=== PATIENT | male | born 2000 | race Caucasian/White ===

== ENCOUNTER 2023-10-13 09:00 | Emergency (ER) | payer OTHER, SELFPAY ==
[2023-10-13 09:00] VITALS: BP 142/84; PULSE 68; RESP 18; TEMP 36.6; O2SAT 98; BMI 26.5
[2023-10-13 09:07] VITALS: BP 142/84; PULSE 68; RESP 16; O2SAT 97
--- NOTE | 2023-10-13 09:15 | DI.RAD.S_ITS ---
PROCEDURE: XR CHEST 1V INDICATIONS: chest pain TECHNIQUE: One view of the chest was acquired. COMPARISON: None. FINDINGS: Surgical changes and devices: None. Lungs and pleura: Lungs are clear. No pleural effusions or pneumothorax. Mediastinum: Mediastinal contours appear normal. Heart size is normal. Bones and chest wall: No suspicious bony lesions. Overlying soft tissues appear unremarkable. IMPRESSION: No evidence acute pulmonary process. Dictated by: Miguelangel Muñoz M.D. on 10/13/2023 at 10:19 Approved by: Miguelangel Muñoz M.D. on 10/13/2023 at 10:19
--- NOTE | 2023-10-13 09:23 | ED_ITS ---
HPI - Chest Pain General Chief Complaint: Chest Pain Stated Complaint: Chest pain Time Seen by Provider: 10/13/23 09:10 Source: patient Mode of arrival: Family Vehicle Limitations: no limitations History of Present Illness HPI narrative: Patient is a 22-year-old healthy male who presents today with right-sided chest pain. He is units moved here on September 21 they [address] their car he has been doing well he has been exercising. However yesterday while cooking he noted some right pectoral pain. He says it is worse with deep breathing. Denies any sort of injury denies shortness of breath or palpitations. Related Data Allergies Allergy/AdvReac Type Severity Reaction Status Date / Time No Known Drug Allergies Allergy Verified 10/13/23 09:51 Patient History Social History Smoking Status: Former smoker Smoking Status: Former smoker tobacco type: vaping alcohol intake frequency: a few times a month Substance Use Type: does not use Exam Initial Vital Signs Initial Vital Signs: Vital Signs Temperature 97.9 F 10/13/23 09:00 Pulse Rate 68 10/13/23 09:00 Respiratory Rate 18 10/13/23 09:00 Blood Pressure 142/84 H 10/13/23 09:00 Pulse Oximetry 98 10/13/23 09:00 Oxygen Delivery Method Room Air 10/13/23 09:00 GENERAL: Alert very well-appearing and in [no acute] distress. HEENT: Head atraumatic,EOMI, pupils reactive, face symmetric, [moist] mucous membranes CARDIOVASCULAR: Regular rate and rhythm without murmurs, rubs or gallops. Nonreproducible chest pain RESPIRATORY: Breath sounds equal bilaterally, no wheezes rales or rhonchi. ABDOMEN: Soft, nontender. Normoactive bowel sounds all 4 quadrants. No guarding or rebound. EXTREMITIES: Normal range of motion, no clubbing or edema. Neurovascularly intact NEUROLOGICAL: Alert and oriented x4.Normal gait and speech. SKIN: Warm, dry, no laceration, no petechiae, no rashes or lesions. Scores HEART Score Heart Score history: Slightly Suspicious Heart Score EKG: Normal Heart Score Age: < 45 years old Heart Score risk factors: No known risk factors Heart Score troponin: < or = to normal limit Heart Score Total: 0 PERC Score Age greater than or equal to 50 years: No Heart rate greater than or equal to 100 bpm: No Room Air O2 Sat less than 95%: No Unilateral leg swelling: No Recent trauma or surgery: No Hemoptysis: No Prior PE or DVT: No Hormone Use: No Total PERC Score: 0 Course Orders Ordered: ED Orders 10/13/23 09:15 XR chest 1V Stat EKG-12 Lead Stat 10/13/23 09:26 Complete Blood Count AUTO DIFF Stat Comprehensive Metabolic Panel Stat D Dimer Stat Lipase Stat Magnesium Stat PTT Partial Thromboplastin Luis Daniel Stat Prothrombin Time INR Stat Troponin & CK Cardiac Panel Stat Discontinued Medications Aspirin (Aspirin 81 Mg Chew Tab) 324 mg PO NOW ONE Stop: 10/13/23 09:16 Last Admin: 10/13/23 09:58 Dose: Not Given Documented By: BAIRON Ketorolac Tromethamine (Ketorolac 30 Mg/Ml Vial) 15 mg IV NOW ONE Stop: 10/13/23 09:29 Last Admin: 10/13/23 09:58 Dose: 15 mg Documented By: BAIRON Vital Signs Vital signs: Vital Signs - 8 hr 10/13/23 09:00 Temperature 97.9 F Pulse Rate 68 Respiratory Rate 18 Blood Pressure 142/84 H Pulse Oximetry 98 Oxygen Delivery Method Room Air MDM - Chest Pain Lab Data 10/13/23 09:26 10/13/23 09:26 Labs: Lab Results 10/13/23 Range/Units 09:26 WBC 5.0 (4.5-11.0) X10^3/uL RBC 5.04 (4.5-5.9) X10^6/uL Hgb 15.2 (13.5-17.5) g/dL Hct 43.9 (41-53) % MCV 87.1 (80-100) fL MCH 30.1 (26-34) PG MCHC 34.5 (30-36) % RDW 13.1 (11.6-14.8) % Plt Count 257 (150-400) X10^3/uL Neut % (Auto) 47.8 L (50-75) % Lymph % (Auto) 41.9 H (25-40) % [place] % (Auto) 7.2 (3-14) % Eos % (Auto) 2.7 (2-4) % Baso % (Auto) 0.4 (0-2) % Neut # (Auto) 2400 (6236-0367) /uL Lymph # (Auto) 2100 (1037-1262) /uL [place] # (Auto) 400 (0-900) /uL Eos # (Auto) 100 (0-450) /uL Baso # (Auto) 0 (0-100) /uL PT 12.4 (9.4-12.5) SECONDS INR 1.1 (0.9-1.3) APTT 35 (25.1-36.5) SECONDS D-Dimer < 215 (<500) ng/ml Sodium 138 (137-145) mmol/L Potassium 4.4 (3.4-5.1) mmol/L Chloride 104 (98-107) mmol/L Carbon Dioxide 29 (22-32) mmol/L BUN 17 (9-20) mg/dL Creatinine 0.88 (0.66-1.25) mg/dL Estimated GFR > 60 (>60) mL/min BUN/Creatinine Ratio 19.3 (6-22) Glucose 96 (70-100) mg/dL Calcium 10.0 (8.4-10.2) mg/dL Magnesium 2.0 (1.6-2.3) mg/dL Total Bilirubin 0.5 (0.2-1.3) mg/dL AST 36 (17-59) IU/L ALT 47 (<50) IU/L Alkaline Phosphatase 77 (38-126) U/L Total Creatine Kinase 173 H (55-170) U/L Troponin I < 0.012 (0.01-0.034) ng/mL Total Protein 8.1 (6.3-8.2) g/dL Albumin 4.8 (3.5-5.0) g/dL Globulin 3.3 (1.7-4.1) g/dL Albumin/Globulin Ratio 1.5 (1.0-2.8) Lipase 55 (23-300) U/L Imaging Data Chest x-ray: Radiologist's Impression: PROCEDURE: XR CHEST 1V INDICATIONS: chest pain TECHNIQUE: One view of the chest was acquired. COMPARISON: None. FINDINGS: Surgical changes and devices: None. Lungs and pleura: Lungs are clear. No pleural effusions or pneumothorax. Mediastinum: Mediastinal contours appear normal. Heart size is normal. Bones and chest wall: No suspicious bony lesions. Overlying soft tissues appear unremarkable. IMPRESSION: No evidence acute pulmonary process. Dictated by: Miguelangel Muñoz M.D. on 10/13/2023 at 10:19 ECG Data Interpretation: Normal sinus rhythm rate 66 CT interval 146 QRS 84 QTC 370 no acute ischemic changes MDM Narrative Medical decision making narrative: Patient healthy 22-year-old male presents today with right-sided chest pain it is worse with movement. Not really reproducible on palpation. Consistent with a musculoskeletal injury. Recently moved here significantly short of breath. Blood work has been reviewed overall reassuring D-dimer negative troponin negative no clinical significant abnormalities. Chest x-ray has been reviewed by myself no acute cardiopulmonary process EKG has been reviewed I suspect that this is more of a musculoskeletal injury. Highly unlikely to be pulmonary embolism or acute coronary syndrome. Recommend supportive care at this time. Discharge Plan Departure Patient Disposition: Home Clinical Impression: Costalchondritis Instructions: Costochondritis Activity Restrictions/Additional Instructions: *You have been diagnosed with costochondritis *What to do: At this time this is likely musculoskeletal problem. Recommend heat ice stretching. *Continue to take medications as directed Ibuprofen 600 mg every 6 hours for lehp-jf-mrkdjhmb pain Tylenol 1000 mg every 6 hours for otyf-yv-igjslghx pain *Follow up with your primary care provider in 2-3 days or call [phone] *Return to ER if you should have increasing pain shortness of breath or any new, worsening or concerning symptoms Stand Alone Forms: Patient Portal/API, Work Release Note
[2023-10-13 09:30] VITALS: BP 132/84; PULSE 72; RESP 16; O2SAT 96
[2023-10-13 09:40] LABS: Add Manual Diff / Slide Review NO; Basophils Absolute Auto 0 /uL (0-100); Basophils Percent Auto 0.4 % (0-2); Eosinophils Absolute Auto 100 /uL (0-450); Eosinophils Percent Auto 2.7 % (2-4); Hematocrit 43.9 % (41-53); Hemoglobin 15.2 g/dL (13.5-17.5); Lymphocytes Absolute Auto 2100 /uL (1100-4500); Lymphocytes Percent Auto 41.9 % (25-40); Mean Corpuscular HGB Conc 34.5 % (30-36); Mean Corpuscular Hemoglobin 30.1 PG (26-34); Mean Corpuscular Volume 87.1 fL (80-100); Monocytes Absolute Auto 400 /uL (0-900); Monocytes Percent Auto 7.2 % (3-14); Neutrophils Absolute Auto 2400 /uL (1500-7000); Neutrophils Percent Auto 47.8 % (50-75); Platelet Count 257 X10^3/uL (150-400); Red Blood Cell Count 5.04 X10^6/uL (4.5-5.9); Red Cell Distribution Width 13.1 % (11.6-14.8)
[2023-10-13 09:46] LABS: INR 1.1 (0.9-1.3); Prothrombin Time 12.4 SECONDS (9.4-12.5)
[2023-10-13 09:49] LABS: PTT Partial Thromboplastin Tim 35 SECONDS (25.1-36.5)
[2023-10-13 09:52] LABS: Alanine Aminotransferase 47 IU/L (<50); Albumin 4.8 g/dL (3.5-5.0); Albumin Globulin Ratio 1.5 (1.0-2.8); Alkaline Phosphatase 77 U/L (38-126); Aspartate Aminotransferase 36 IU/L (17-59); BUN Creatinine Ratio 19.3 (6-22); Bilirubin Total 0.5 mg/dL (0.2-1.3); Blood Urea Nitrogen 17 mg/dL (9-20); Carbon Dioxide 29 mmol/L (22-32); Chloride 104 mmol/L (98-107); Creatine Kinase 173 U/L (55-170); Estimated Glomerular Filt Rate > 60 mL/min (>60); Globulin 3.3 g/dL (1.7-4.1); Glucose 96 mg/dL (70-100); HEMOLYSIS < 15 (0-50); Lipase 55 U/L (23-300); Potassium 4.4 mmol/L (3.4-5.1); Sodium 138 mmol/L (137-145); Total Protein 8.1 g/dL (6.3-8.2)
[2023-10-13] MEDS: KETOROLAC 30 MG/ML VIAL 15 MG IV (09:58)
[2023-10-13 10:00] VITALS: BP 126/77; PULSE 68; RESP 17; O2SAT 96
[2023-10-13 10:02] LABS: D Dimer < 215 ng/ml (<500)
[2023-10-13 10:04] LABS: Troponin I < 0.012 ng/mL (0.01-0.034)
== END 2023-10-13 10:32 | disposition home or self-care (01) ==
PROVIDERS: Emergency Provider Emergency Medicine
DX: M94.0 Chondrocostal junction syndrome [Tietze] (principal)
CPT/HCPCS: 36415; 71045; 80053; 82550; 83690; 83735; 84484; 85025; 85379; 85610; 85730; 93005; 93010; 96374; 99284; J1885

== ENCOUNTER 2023-12-19 08:55 | Emergency (ER) | payer OTHER, SELFPAY ==
[2023-12-19 09:05] VITALS: BP 130/81; PULSE 77; RESP 18; TEMP 36.6; O2SAT 96; BMI 26.5
--- NOTE | 2023-12-19 10:34 | ED_ITS ---
HPI - Extremity Problem General Chief complaint: Extremity Problem,Nontraumatic Stated complaint: L Anderson Pain when running or taking stairs Time Seen by Provider: 12/19/23 10:15 Source: patient Mode of arrival: Ambulatory History of Present Illness HPI Narrative: 23-year-old healthy male with no reported medical issues. Patient presents with complaint of tibial pain when running, going up stairs. Patient states he has been working out more than typical. He is tiring for PRRT. Patient states isn't particularly painful to walk. Patient denies any other injuries. No falls no other trauma. He does note he has been working out a lot and running a lot more than typical. I states he is otherwise healthy. Sometimes has right knee pain but this is in his left lower extremity. Denies any other injuries. No daily medications. Denies any prior surgeries. No known drug allergies. Former smoker,, vaping tobacco. Occasional alcohol, no recreational drugs. Received health care through the [facility] in [place]. Related Data Allergies Allergy/AdvReac Type Severity Reaction Status Date / Time No Known Drug Allergies Allergy Verified 10/13/23 09:51 Review of Systems Review of Systems ROS Unobtainable: All systems reviewed & are unremarkable except as noted in HPI and below Patient History Social History Smoking Status: Former smoker Smoking Status: Former smoker tobacco type: vaping alcohol intake frequency: a few times a month Substance Use Type: does not use Exam Narrative Exam Narrative: GENERAL: Alert and oriented x three, male in no acute distress HEENT: Head normocephalic, atraumatic, EOMI, pupils reactive, face symmetric, moist mucous membranes NECK: Supple, full range of motion EXTREMITIES: Normal range of motion, no clubbing or edema. Neurovascularly intact, minimal tenderness over the proximal tibia approximately 4 cm below the knee. Patient does not have any other bony tenderness of the left extremity, no tenderness over the knee. No warmth erythema or other skin changes. Patient does not have any joint laxity on testing. 2+ pulses. Normal sensation throughout. NEUROLOGICAL: Cranial nerves II through XII grossly intact. Moving all extremities SKIN: Warm, dry, no petechiae, no rashes or lesions. Initial Vital Signs Initial Vital Signs: Vital Signs Temperature 97.8 F 12/19/23 09:05 Pulse Rate 77 12/19/23 09:05 Respiratory Rate 18 12/19/23 09:05 Blood Pressure 130/81 12/19/23 09:05 Pulse Oximetry 96 12/19/23 09:05 Oxygen Delivery Method Room Air 12/19/23 09:05 Course Orders Ordered: ED Orders 12/19/23 10:37 XR tibia fibula LT 2V Stat Vital Signs Vital signs: Vital Signs - 8 hr 12/19/23 09:05 Temperature 97.8 F Pulse Rate 77 Respiratory Rate 18 Blood Pressure 130/81 Pulse Oximetry 96 Oxygen Delivery Method Room Air MDM - Extremity (Nontraumatic) Imaging Data Extremity x-ray #1: Radiologist's Impression: Close Tibia/Fibula X-Ray (Signed) Nile West - 12/19/23 Launch?[address] [address] XRay Report Signed Patient: Flakito Alexander MR#: [id number] : 2000 Acct:[id number] Age/Sex: 23 / M Date of Service: 12/19/23 Loc: ED Accession Number: [id number] Procedure: XR tibia fibula LT 2V Ordering Provider: Robyn Huynh D.O. PROCEDURE: XR TIBIA FIBULA LT 2V INDICATIONS: prox tib pain w/ running TECHNIQUE: 2 views of the tibia and fibula were acquired. COMPARISON: None. FINDINGS: Bones: No fractures or dislocations. No suspicious bony lesions. Soft tissues: No suspicious soft tissue calcifications or masses. IMPRESSION: No acute lower leg fracture or dislocation. No radiographic evidence of anderson splint. Dictated by: Nile West M.D. on 12/19/2023 at 11:01 Approved by: Nile West M.D. on 12/19/2023 at 11:[address] [facility] Narrative Medical decision making narrative: 23-year-old male with complaint of left anterior anderson pain consistent with anderson splints and clinical history consistent with repetitive running and exercising. X-ray does not show any acute change. Patient was encouraged to decrease activity. Follow-up with primary care. Discharge Plan Departure Patient Disposition: Home Clinical Impression: Anderson splint of left lower extremity Instructions: DI for Anderson Splints-Adult Activity Restrictions/Additional Instructions: Follow up with primary care for recheck in the next week for recheck. I would recommend that you decrease your activity in terms of running, you can walk and ambulate normally. Can take Tylenol up to a 1000 mg every 6 hours and/or ibuprofen up to 600 mg every 6 hours as needed. Please return for rapidly worsening symptoms, inability to weightbear, new color changes or other new or concerning changes. Stand Alone Forms: Patient Portal/API
--- NOTE | 2023-12-19 10:37 | DI.RAD.S_ITS ---
PROCEDURE: XR TIBIA FIBULA LT 2V INDICATIONS: prox tib pain w/ running TECHNIQUE: 2 views of the tibia and fibula were acquired. COMPARISON: None. FINDINGS: Bones: No fractures or dislocations. No suspicious bony lesions. Soft tissues: No suspicious soft tissue calcifications or masses. IMPRESSION: No acute lower leg fracture or dislocation. No radiographic evidence of bolden splint. Dictated by: Nile West M.D. on 12/19/2023 at 11:01 Approved by: Nile West M.D. on 12/19/2023 at 11:01
== END 2023-12-19 11:19 | disposition home or self-care (01) ==
PROVIDERS: Emergency Provider Emergency Medicine
DX: S86.892A Other injury of other muscle(s) and tendon(s) at lower leg level, left leg, initial encounter (principal); X58.XXXA Exposure to other specified factors, initial encounter
CPT/HCPCS: 73590; 99283

== ENCOUNTER 2024-03-27 12:01 | Emergency (ER) | payer OTHER, SELFPAY ==
[2024-03-27] VITALS (9 sets, daily range): BP systolic 113–166; BP diastolic 54–84; PULSE 74–89; RESP 13–22; TEMP 36.1; O2SAT 95–97; BMI 27.2
--- NOTE | 2024-03-27 12:15 | DI.RAD.S_ITS ---
PROCEDURE: XR CHEST 1V INDICATIONS: chest pain TECHNIQUE: One view of the chest was acquired. COMPARISON: [facility], CR, XR CHEST 1V, 10/13/2023, 9:48. FINDINGS: New mild bilateral perihilar and lower lobe peribronchial thickening some of which commonly may be related to expiratory result with mild bibasilar subsegmental atelectasis however bronchitis, viral infection, asthma or other process could be considered. Cardiopericardial silhouette and pulmonary vasculature within normal limits. No pneumothorax, no pleural effusion, no focal consolidation. 6 mm round sclerotic density projected at the level of the left humeral head unchanged too small to characterize may represent heterotopic soft tissue calcification, bone cyst or other. Otherwise the osseous structures within normal limits for patient's age IMPRESSION: New mild bilateral perihilar and lower lobe peribronchial thickening as discussed above, bronchitis, viral infection, asthma or other process could be considered. If symptoms persist or worsen, CT chest could be performed. 6 mm round sclerotic density left humeral head unchanged. Dictated by: Jeramy Zavala M.D. on 03/27/2024 at 13:52 Approved by: Jeramy Zavala M.D. on 03/27/2024 at 13:55
--- NOTE | 2024-03-27 12:15 | EKG_ITS ---
[address] [address] Test Date: 2024-03-27 Pat Name: Flakito Alexander Department: [facility] Room: Gender: Male Social Services Technician: : 2000 Requested By: Order Number: [id number] Reading MD: Praful Mobley Measurements Intervals [place] Rate: 86 P: 56 FL: 154 QRS: 49 QRSD: 76 T: 37 QT: 324 QTc: 387 Interpretive Statements Normal sinus rhythm Electronically Signed On 03-28-2024 19:51:23 PDT by Praful Mobley
[2024-03-27 12:34] LABS: Add Manual Diff / Slide Review NO; Basophils Absolute Auto 100 /uL (0-100); Basophils Percent Auto 0.7 % (0-2); Eosinophils Absolute Auto 100 /uL (0-450); Eosinophils Percent Auto 0.9 % (2-4); Hematocrit 43.5 % (41-53); Lymphocytes Absolute Auto 1900 /uL (1100-4500); Lymphocytes Percent Auto 22.3 % (25-40); Mean Corpuscular HGB Conc 34.6 % (30-36); Mean Corpuscular Hemoglobin 30.3 PG (26-34); Mean Corpuscular Volume 87.7 fL (80-100); Monocytes Absolute Auto 400 /uL (0-900); Monocytes Percent Auto 4.5 % (3-14); Neutrophils Absolute Auto 6200 /uL (1500-7000); Neutrophils Percent Auto 71.6 % (50-75); Platelet Count 302 X10^3/uL (150-400); Red Blood Cell Count 4.96 X10^6/uL (4.5-5.9); White Blood Cell Count 8.7 X10^3/uL (4.5-11.0)
[2024-03-27 12:53] LABS: PTT Partial Thromboplastin Tim 29 SECONDS (25.1-36.5)
[2024-03-27 13:01] LABS: Alanine Aminotransferase 42 IU/L (<50); Albumin 4.6 g/dL (3.5-5.0); Albumin Globulin Ratio 1.6 (1.0-2.8); Alkaline Phosphatase 104 U/L (38-126); Aspartate Aminotransferase 36 IU/L (17-59); BUN Creatinine Ratio 12.9 (6-22); Bilirubin Total 0.5 mg/dL (0.2-1.3); Blood Urea Nitrogen 15 mg/dL (9-20); Calcium 9.7 mg/dL (8.4-10.2); Carbon Dioxide 26 mmol/L (22-32); Chloride 105 mmol/L (98-107); Creatine Kinase 273 U/L (55-170); Estimated Glomerular Filt Rate > 60 mL/min (>60); Globulin 2.9 g/dL (1.7-4.1); Glucose 89 mg/dL (70-100); HEMOLYSIS < 15 (0-50); Lipase 58 U/L (23-300); Magnesium 1.8 mg/dL (1.6-2.3); Potassium 4.3 mmol/L (3.4-5.1); Sodium 140 mmol/L (137-145); Total Protein 7.5 g/dL (6.3-8.2)
[2024-03-27 13:12] LABS: NT-proBNP (BNP-Adult 18+) < 20 pg/mL (<125); Troponin I < 0.012 ng/mL (0.01-0.034)
--- NOTE | 2024-03-27 14:36 | EKG_ITS ---
[address] [address] Test Date: 2024-03-27 Pat Name: Flakito Alexander Department: Room: Gender: Male Power Station Operator: LISSY : 2000 Requested By: Order Number: [id number] Reading MD: Praful Mobley Measurements Intervals [place] Rate: 77 P: 36 NM: 148 QRS: 66 QRSD: 86 T: 41 QT: 350 QTc: 396 Interpretive Statements Normal sinus rhythm with sinus arrhythmia Electronically Signed On 03-28-2024 19:51:37 PDT by Praful Mobley
--- NOTE | 2024-03-27 15:01 | ED_ITS ---
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 Chest pain restarted after about 5 minutes of running again and resolved after resting. Does not radiate. No history of cardiac issues. No diaphoresis. No cold cough or congestion recently the patient recalls. No nausea or vomiting no other GI or urinary symptoms. Patient denies any history of asthma. States he was seen by the base physician told it be evaluated. States no daily medications. No long distance travel. Former smoker, alcohol 2 or 3 times month, no recreational drugs. Had a grandmother who had open heart surgery but no known cardiac, pulmonary or embolic disease for parents or siblings. Patient states he did not go walk-in clinic about 2 weeks ago but he does not remember why. Related Data Previous Rx's Medication Instructions Recorded albuterol sulfate 90 mcg/actuation 2 puff inhalation Q4-6H PRN 03/27/24 aerosol inhaler shortness of breath or wheezing #6.7 grams azithromycin 250 mg tablet See Rx Instructions PO .COMPLEX #6 03/27/24 tabs inhalational spacing device #1 ea 03/27/24 (Aerochamber MV spacer) prednisone 10 mg tablets in a dose See Rx Instructions PO .COMPLEX 03/27/24 pack #15 ea Allergies Allergy/AdvReac Type Severity Reaction Status Date / Time No Known Drug Allergies Allergy Verified 10/13/23 09:51 Review of Systems Review of Systems ROS Unobtainable: All systems reviewed & are unremarkable except as noted in HPI and below Patient History Social History Smoking Status: Former smoker Smoking Status: Former smoker tobacco type: vaping alcohol intake frequency: a few times a month Substance Use Type: does not use Exam Narrative Exam Narrative: GENERAL: Alert and oriented x three, well-appearing male no acute distress HEENT: Head normocephalic, atraumatic, EOMI, pupils reactive, face symmetric, moist mucous membranes NECK: Supple, full range of motion CARDIOVASCULAR: Regular rate and rhythm without murmurs, rubs or gallops. No JVD. No edema bilateral lower extremities. RESPIRATORY: Breath sounds equal bilaterally, no wheezes rales or rhonchi. ABDOMEN: Soft, nontender. Normoactive bowel sounds all 4 quadrants. No guarding or rebound, rigidity, no mass : No CVA tenderness EXTREMITIES: Normal range of motion, no clubbing or edema. Neurovascularly intact NEUROLOGICAL: Cranial nerves II through XII grossly intact. Moving all extremities SKIN: Warm, dry, no petechiae, no rashes or lesions. Initial Vital Signs Initial Vital Signs: Vital Signs Temperature 97.0 F L 03/27/24 12:11 Pulse Rate 85 03/27/24 12:11 Respiratory Rate 16 03/27/24 12:11 Blood Pressure 139/84 03/27/24 12:11 Pulse Oximetry 96 03/27/24 12:11 Oxygen Delivery Method Room Air 03/27/24 12:11 Scores HEART Score Heart Score history: Moderately Suspicious Heart Score EKG: Normal Heart Score Age: < 45 years old Heart Score risk factors: No known risk factors Heart Score troponin: < or = to normal limit Heart Score Total: 1 Course Orders Ordered: ED Orders 03/27/24 12:15 XR chest 1V Stat EKG-12 Lead Stat 03/27/24 12:24 Complete Blood Count AUTO DIFF Stat Comprehensive Metabolic Panel Stat Lipase Stat Magnesium Stat NT-proBNP (BNP-Adult 18+) Stat PTT Partial Thromboplastin Luis Daniel Stat Prothrombin Time INR Stat Troponin & CK Cardiac Panel Stat 03/27/24 14:31 Trop I [Troponin I] Stat 03/27/24 14:36 EKG-12 Lead Routine Discontinued Medications Azithromycin (Azithromycin 250 Mg Tablet) 500 mg PO NOW ONE Stop: 03/27/24 15:31 Last Admin: 03/27/24 15:36 Dose: 500 mg Documented By: TOMI Prednisone (Prednisone 20 Mg Tablet) 60 mg PO NOW ONE Stop: 03/27/24 15:31 Last Admin: 03/27/24 15:36 Dose: 60 mg Documented By: TOMI Vital Signs Vital signs: Vital Signs - 8 hr 03/27/24 12:11 03/27/24 12:49 03/27/24 12:52 Temperature 97.0 F L Pulse Rate 85 89 Respiratory Rate 16 Blood Pressure 139/84 157/70 H Pulse Oximetry 96 96 Oxygen Delivery Method Room Air 03/27/24 12:52 03/27/24 13:00 03/27/24 13:00 Temperature Pulse Rate 79 78 Respiratory Rate 17 22 Blood Pressure 136/65 Pulse Oximetry 95 95 Oxygen Delivery Method 03/27/24 13:30 03/27/24 13:30 03/27/24 14:00 Temperature Pulse Rate 83 Respiratory Rate 13 Blood Pressure 113/54 L 166/82 H Pulse Oximetry 97 Oxygen Delivery Method Room Air 03/27/24 14:00 03/27/24 14:30 03/27/24 14:30 Temperature Pulse Rate 76 74 Respiratory Rate 21 20 Blood Pressure 136/74 Pulse Oximetry 97 96 Oxygen Delivery Method 03/27/24 15:00 03/27/24 15:00 03/27/24 15:30 Temperature Pulse Rate 78 79 Respiratory Rate 19 17 Blood Pressure 126/79 Pulse Oximetry 97 97 Oxygen Delivery Method Room Air Room Air 03/27/24 15:30 Temperature Pulse Rate Respiratory Rate Blood Pressure 131/79 Pulse Oximetry Oxygen Delivery Method MDM - Chest Pain Lab Data 03/27/24 12:24 03/27/24 12:24 Labs: Lab Results 03/27/24 03/27/24 Range/Units 12:24 14:31 WBC 8.7 (4.5-11.0) X10^3/uL RBC 4.96 (4.5-5.9) X10^6/uL Hgb 15.0 (13.5-17.5) g/dL Hct 43.5 (41-53) % MCV 87.7 (80-100) fL MCH 30.3 (26-34) PG MCHC 34.6 (30-36) % RDW 13.0 (11.6-14.8) % Plt Count 302 (150-400) X10^3/uL Neut % (Auto) 71.6 (50-75) % Lymph % (Auto) 22.3 L (25-40) % [place] % (Auto) 4.5 (3-14) % Eos % (Auto) 0.9 L (2-4) % Baso % (Auto) 0.7 (0-2) % Neut # (Auto) 6200 (3920-1831) /uL Lymph # (Auto) 1900 (3167-2961) /uL [place] # (Auto) 400 (0-900) /uL Eos # (Auto) 100 (0-450) /uL Baso # (Auto) 100 (0-100) /uL PT 12.0 (9.4-12.5) SECONDS INR 1.0 (0.9-1.3) APTT 29 (25.1-36.5) SECONDS Sodium 140 (137-145) mmol/L Potassium 4.3 (3.4-5.1) mmol/L Chloride 105 (98-107) mmol/L Carbon Dioxide 26 (22-32) mmol/L BUN 15 (9-20) mg/dL Creatinine 1.16 (0.66-1.25) mg/dL Estimated GFR > 60 (>60) mL/min BUN/Creatinine Ratio 12.9 (6-22) Glucose 89 (70-100) mg/dL Calcium 9.7 (8.4-10.2) mg/dL Magnesium 1.8 (1.6-2.3) mg/dL Total Bilirubin 0.5 (0.2-1.3) mg/dL AST 36 (17-59) IU/L ALT 42 (<50) IU/L Alkaline Phosphatase 104 (38-126) U/L Total Creatine Kinase 273 H (55-170) U/L Troponin I < 0.012 < 0.012 (0.01-0.034) ng/mL NT-Pro-B Natriuret Pep < 20 (<125) pg/mL Total Protein 7.5 (6.3-8.2) g/dL Albumin 4.6 (3.5-5.0) g/dL Globulin 2.9 (1.7-4.1) g/dL Albumin/Globulin Ratio 1.6 (1.0-2.8) Lipase 58 (23-300) U/L Imaging Data Chest x-ray: Radiologist's Impression: [address] [address] XRay Report Signed Patient: Flakito Alexander MR#: [id number] : 2000 Acct:[id number] Age/Sex: 23 / M Date of Service: 03/27/24 Loc: ED Accession Number: [id number] Procedure: XR chest 1V Ordering Provider: Robyn Huynh D.O. PROCEDURE: XR CHEST 1V INDICATIONS: chest pain TECHNIQUE: One view of the chest was acquired. COMPARISON: [facility], CR, XR CHEST 1V, 10/13/2023, 9:48. FINDINGS: New mild bilateral perihilar and lower lobe peribronchial thickening some of which commonly may be related to expiratory result with mild bibasilar subsegmental atelectasis however bronchitis, viral infection, asthma or other process could be considered. Cardiopericardial silhouette and pulmonary vasculature within normal limits. No pneumothorax, no pleural effusion, no focal consolidation. 6 mm round sclerotic density projected at the level of the left humeral head unchanged too small to characterize may represent heterotopic soft tissue calcification, bone cyst or other. Otherwise the osseous structures within normal limits for patient's age IMPRESSION: New mild bilateral perihilar and lower lobe peribronchial thickening as discussed above, bronchitis, viral infection, asthma or other process could be considered. If symptoms persist or worsen, CT chest could be performed. 6 mm round sclerotic density left humeral head unchanged. Dictated by: Jeramy Zavala M.D. on 03/27/2024 at 13:52 Approved by: Jeramy Zavala M.D. on 03/27/2024 at 13:55 ECG Data Attestation: I personally reviewed and interpreted this ECG as follows: Interpretation: Sinus rhythm rate 86 MA 154 QRS is 76 QTC 387, no acute elevation. Repeat EKG shows sinus rhythm with sinus arrhythmia rate of 77 MA 148 QRS 86 QTC 396. EKG appears similar to prior no dynamic changes appreciated. MDM Narrative Medical decision making narrative: Labs show white count 8.7 hemoglobin of 15 platelets of 302. INR is 1. Chemistries normal with normal creatinine and BUN, glucose of 89 total CK is 273 LFTs are negative troponins less than 0.012. Troponin was repeated is less than 0.012. with a BNP less than 20. Chest x-ray shows changes new mild bilateral perihilar and lower lobe peribronchial thickening somewhat maybe related expiratory resolved with mild bibasilar subsegmental atelectasis have a bronchitis, viral infection, asthma or other process could be considered. 6 mm round sclerotic density over the level left humeral unchanged too small to characterize may represent her topic soft tissue calcification, bone cyst or other. EKG shows sinus rhythm no acute changes. 23-year-old male with no high-risk factors for cardiac source, patient does have chest xray changes consistent with possible bronchitis or viral infection patient has not had any known upper respiratory infection recently so we will give a short course of prednisone but will also cover with an antibiotic for potential bacterial infection although patient has been afebrile. Patient is to follow up with his primary care for repeat chest x-ray to make sure resolution of changes and re-evaluation. Discharge Plan Departure Patient Disposition: Home Clinical Impression: Chest pain, Bronchitis Activity Restrictions/Additional Instructions: Your imaging today does show some changes consistent with perihilar and lower lobe peribronchial thickening this can sometimes be caused by viral infections or bronchitis there is a possibility could have developed a little bit of bacterial infection although your labs are overall normal. You do need to follow up with primary care to make sure resolution of symptoms and that repeat imaging is clear. I had recommend a short course of steroids, I am going to give you a prescription for an oral antibiotic today. If you develop chest discomfort or shortness of breath with exertion you can use albuterol 2-4 puffs with a spacer to see if this improves your symptoms. Prescription was sent to the [employer] base in [place]. Please return for fevers, new or worsening chest pain or shortness of breath, lightheadedness or passing out, new swelling of your extremities, coughing up blood or other new or concerning changes. Prescriptions: New prednisone 10 mg tablets,dose pack See Rx Instructions .ROUTE .COMPLEX Qty: 15 0RF Rx Instructions: 5 tabs p.o. x1 day, then 4 tablets p.o. x1 day, then 3 tabs p.o. x1 day, then 2 tabs p.o. x1 day, then 1 tab p.o. x1 day azithromycin 250 mg tablet See Rx Instructions .ROUTE .COMPLEX Qty: 6 0RF Rx Instructions: For 250 mg dose pack: take 500 mg today (day 1), then 250 mg for 4 days (days 2-5) albuterol sulfate 90 mcg/actuation HFA aerosol inhaler 2 puff inhalation Q4-6H PRN (Reason: shortness of breath or wheezing) Qty: 6.7 0RF (DME) Aerochamber MV Spacer See Rx Instructions .Route Qty: 1 0RF Rx Instructions: As directed Stand Alone Forms: Patient Portal/API
[2024-03-27 15:15] LABS: Troponin I < 0.012 ng/mL (0.01-0.034)
[2024-03-27] MEDS: predniSONE 20 MG TABLET 60 MG PO (15:36)
[2024-03-27] MEDS: AZITHROMYCIN 250 MG TABLET 500 MG PO (15:36)
== END 2024-03-27 15:51 | disposition home or self-care (01) ==
PROVIDERS: Emergency Provider Emergency Medicine
DX: R07.9 Chest pain, unspecified (principal); J40 Bronchitis, not specified as acute or chronic; I49.8 Other specified cardiac arrhythmias
CPT/HCPCS: 36415; 71045; 80053; 82550; 83690; 83735; 83880; 84484; 85025; 85610; 85730; 93005; 99284

== ENCOUNTER 2024-04-19 02:57 | Emergency (ER) | payer OTHER, SELFPAY ==
[2024-04-19 03:08] VITALS: BP 129/73; PULSE 82; O2SAT 98
--- NOTE | 2024-04-19 03:10 | ED_ITS ---
HPI - Abdominal Pain General Chief Complaint: Abdominal Pain Stated Complaint: abd pain Time Seen by Provider: 04/19/24 02:58 History of Present Illness HPI narrative: 23-year-old male with no reported past medical history presents with 3 hours of lower abdominal pain and nausea. He took ibuprofen and Tylenol prior to arrival, which have significantly relieved the pain. Patient called the nursing advice line, who recommended he come to the ER for evaluation. Patient has never had abdominal surgery before. Reports normal bowel movements Related Data Previous Rx's Medication Instructions Recorded albuterol sulfate 90 mcg/actuation 2 puff inhalation Q4-6H PRN 03/27/24 aerosol inhaler shortness of breath or wheezing #6.7 grams azithromycin 250 mg tablet See Rx Instructions PO .COMPLEX #6 03/27/24 tabs inhalational spacing device #1 ea 03/27/24 (Aerochamber MV spacer) prednisone 10 mg tablets in a dose See Rx Instructions PO .COMPLEX 03/27/24 pack #15 ea ondansetron 4 mg disintegrating 4 mg PO Q8H PRN nausea and 04/19/24 tablet vomiting #30 tabs Allergies Allergy/AdvReac Type Severity Reaction Status Date / Time No Known Drug Allergies Allergy Verified 10/13/23 09:51 Patient History Social History Smoking Status: Former smoker Smoking Status: Former smoker tobacco type: vaping alcohol intake frequency: a few times a month Substance Use Type: does not use Exam Initial Vital Signs Initial Vital Signs: Vital Signs Temperature 98.4 F 04/19/24 03:19 Pulse Rate 80 04/19/24 03:19 Respiratory Rate 16 04/19/24 03:19 Blood Pressure 129/73 04/19/24 03:19 Pulse Oximetry 98 04/19/24 03:19 Oxygen Delivery Method Room Air 04/19/24 03:19 Const: Awake, alert, no acute distress, nontoxic appearing Cardiac: regular rate, regular rhythm RESP: unlabored, clear bilaterally, no wheezing GI: Soft, suprapubic and lower quadrant tenderness to deep palpation without rebound or guarding Skin: Warm, Dry, intact, no rashes Neuro: AO x3, CN II-XII grossly intact, moves all extremities Course Orders Ordered: ED Orders 04/19/24 03:10 UA Complete [Urinalysis and Microscopic] Stat 04/19/24 03:15 CBC Auto Diff [Complete Blood Count AUTO DIFF] Stat CMP [Comprehensive Metabolic Panel] Stat 04/19/24 03:29 CT abdomen pelvis w con Stat Discontinued Medications Ondansetron HCl (Ondansetron 4 Mg/2 Ml Inj) 4 mg IV NOW ONE Stop: 04/19/24 03:27 Last Admin: 04/19/24 03:32 Dose: 4 mg Vital Signs Vital signs: Vital Signs - 8 hr 04/19/24 03:19 Temperature 98.4 F Pulse Rate 80 Respiratory Rate 16 Blood Pressure 129/73 Pulse Oximetry 98 Oxygen Delivery Method Room Air MDM - Abdominal Pain Differential Diagnosis Differential diagnosis: Likely abdominal pain, acute appendicitis and gastroenteritis Lab Data 04/19/24 03:15 04/19/24 03:15 Labs: Lab Results 04/19/24 04/19/24 Range/Units 03:10 03:15 WBC 16.2 H (4.5-11.0) X10^3/uL RBC 5.06 (4.5-5.9) X10^6/uL Hgb 15.0 (13.5-17.5) g/dL Hct 44.4 (41-53) % MCV 87.8 (80-100) fL MCH 29.7 (26-34) PG MCHC 33.8 (30-36) % RDW 13.1 (11.6-14.8) % Plt Count 260 (150-400) X10^3/uL Neut % (Auto) 83.9 H (50-75) % Lymph % (Auto) 10.3 L (25-40) % [place] % (Auto) 4.8 (3-14) % Eos % (Auto) 0.5 L (2-4) % Baso % (Auto) 0.5 (0-2) % Neut # (Auto) 64855 H (3349-4589) /uL Lymph # (Auto) 1700 (4474-2024) /uL [place] # (Auto) 800 (0-900) /uL Eos # (Auto) 100 (0-450) /uL Baso # (Auto) 100 (0-100) /uL Sodium 135 L (137-145) mmol/L Potassium 4.3 (3.4-5.1) mmol/L Chloride 104 (98-107) mmol/L Carbon Dioxide 23 (22-32) mmol/L BUN 22 H (9-20) mg/dL Creatinine 0.78 (0.66-1.25) mg/dL Estimated GFR > 60 (>60) mL/min BUN/Creatinine Ratio 28.2 H (6-22) Glucose 107 H (70-100) mg/dL Calcium 9.5 (8.4-10.2) mg/dL Total Bilirubin 0.4 (0.2-1.3) mg/dL AST 49 (17-59) IU/L ALT 78 H (<50) IU/L Alkaline Phosphatase 106 (38-126) U/L Total Protein 7.5 (6.3-8.2) g/dL Albumin 4.3 (3.5-5.0) g/dL Globulin 3.2 (1.7-4.1) g/dL Albumin/Globulin Ratio 1.3 (1.0-2.8) Urine Color Yellow Urine Appearance Clear Urine pH 5.5 (4.5-8.0) Ur Specific [place] >=1.030 H (1.000-1.035) Urine Protein Negative (Negative) Urine Glucose (UA) Negative (Negative) g/dL Urine Ketones Negative (NEGATIVE) Urine Occult Blood Trace-intact (Negative) Urine Nitrate Negative (Negative) Urine Bilirubin Negative (NEGATIVE) Urine Urobilinogen 0.2 (0.2) E.U./dL Ur Leukocyte Esterase Negative (NEGATIVE) Urine RBC None seen (0-5/HPF) Urine WBC None seen (0-5/HPF) Ur Squamous Epith Cells None seen (0-5/HPF) Urine Bacteria None seen (None) Ur Culture Indicated? Cult not indicated Vol Urine Centrifuged 10ml (spun) Imaging Data CT scan - abdomen/pelvis: Radiologist's Impression: Preliminary impression: No acute abnormalities. Slight bladder wall thickening MDM Narrative Medical decision making narrative: Well-appearing patient with 3 hours of symptoms. Abdomen soft, no peritoneal signs. Laboratory work to be ordered, if there are any abnormalities can consider additional imaging. Laboratory work shows WBC count 16.2, hemoglobin 15, platelet count 260, sodium 135, potassium 4.3, creatinine 0.78, ALT 78. CT imaging shows slight bladder wall thickening, normal appendix. No other acute findings. Patient's urinalysis is negative for any signs of infection or bacteria. Patient resting comfortably in bed, all lab and imaging findings discussed with the patient and at bedside. Recommended that patient continue to take Tylenol and ibuprofen as needed for discomfort. If he continues to have pain then he should follow up with his primary care doctor. Discharge Plan Departure Patient Disposition: Home Clinical Impression: Abdominal pain Instructions: DI for Abdominal Pain-Adult Activity Restrictions/Additional Instructions: Your laboratory work showed that you have a slight elevation in your white blood cell count, however your CT imaging did not show any infection, inflammation, blockage, or masses. There may be some slight constipation in your right colon, but your appendix is normal. Your bladder wall was noted to be slightly on the thicker side, which can sometimes happen an infection, but your urine is clear of any bacteria or other markers of infection. Continue to take Tylenol and ibuprofen as needed for pain or discomfort. You can try stool softeners to see if more frequent bowel movements help alleviate your abdominal pain. If you continue to experience abdominal pains then follow up with your primary care doctor. A just in case prescription for nausea medication has been sent to the [facility] pharmacy Prescriptions: New ondansetron 4 mg tablet,disintegrating 4 mg PO Q8H PRN (Reason: nausea and vomiting) Qty: 30 0RF No Action prednisone 10 mg tablets,dose pack See Rx Instructions .ROUTE .COMPLEX Qty: 15 0RF Rx Instructions: 5 tabs p.o. x1 day, then 4 tablets p.o. x1 day, then 3 tabs p.o. x1 day, then 2 tabs p.o. x1 day, then 1 tab p.o. x1 day azithromycin 250 mg tablet See Rx Instructions .ROUTE .COMPLEX Qty: 6 0RF Rx Instructions: For 250 mg dose pack: take 500 mg today (day 1), then 250 mg for 4 days (days 2-5) albuterol sulfate 90 mcg/actuation HFA aerosol inhaler 2 puff inhalation Q4-6H PRN (Reason: shortness of breath or wheezing) Qty: 6.7 0RF (DME) Aerochamber MV Spacer See Rx Instructions .Route Qty: 1 0RF Rx Instructions: As directed Referrals: ProviderJennifer [Primary Care Provider] - Stand Alone Forms: Patient Portal/API, Work Release Note
[2024-04-19 03:19] VITALS: BP 129/73; PULSE 80; RESP 16; TEMP 36.9; O2SAT 98; BMI 27.2
[2024-04-19 03:22] LABS: Add Manual Diff / Slide Review NO; Basophils Absolute Auto 100 /uL (0-100); Basophils Percent Auto 0.5 % (0-2); Eosinophils Absolute Auto 100 /uL (0-450); Eosinophils Percent Auto 0.5 % (2-4); Hematocrit 44.4 % (41-53); Lymphocytes Absolute Auto 1700 /uL (1100-4500); Lymphocytes Percent Auto 10.3 % (25-40); Mean Corpuscular HGB Conc 33.8 % (30-36); Mean Corpuscular Hemoglobin 29.7 PG (26-34); Mean Corpuscular Volume 87.8 fL (80-100); Monocytes Absolute Auto 800 /uL (0-900); Monocytes Percent Auto 4.8 % (3-14); Neutrophils Absolute Auto 13600 /uL (1500-7000); Neutrophils Percent Auto 83.9 % (50-75); Platelet Count 260 X10^3/uL (150-400); Red Blood Cell Count 5.06 X10^6/uL (4.5-5.9); Red Cell Distribution Width 13.1 % (11.6-14.8); White Blood Cell Count 16.2 X10^3/uL (4.5-11.0)
[2024-04-19 03:25] LABS: Appearance Urine UA CLEAR; Bilirubin Urine UA NEGATIVE (NEGATIVE); Color Urine UA YELLOW; Glucose Urine UA NEGATIVE (Negative); Ketones Urine UA NEGATIVE (NEGATIVE); Leukocyte Esterase Urine UA NEGATIVE (NEGATIVE); Nitrite Urine UA NEGATIVE (Negative); Occult Blood Urine UA TRACE-INTACT (Negative); Protein Urine UA NEGATIVE (Negative); Specific Gravity Urine UA >=1.030 (1.000-1.035); Urobilinogen Urine UA 0.2 E.U./dL (0.2); pH Urine UA 5.5 (4.5-8.0)
--- NOTE | 2024-04-19 03:29 | DI.CT.S_ITS ---
PROCEDURE: CT ABDOMEN PELVIS W CON INDICATIONS: R SIDED ABD PAIN, NAUSEA TECHNIQUE: After the administration of intravenous contrast, axial sections acquired from the lung bases to the pubic symphysis. Coronal and sagittal reformats were performed. For radiation dose reduction, the following was used: automated exposure control, adjustment of mA and/or kV according to patient size. COMPARISON: None. FINDINGS: Image quality: Diagnostic. Lower Chest: No significant findings. ABDOMEN: Liver: No solid mass. Gallbladder: No radiopaque gallstones or wall thickening. Biliary ducts: No biliary dilation. Pancreas: No ductal dilation. Spleen: Size is within normal limits. Adrenal Glands: No adrenal nodules. Kidneys and Ureters: No hydronephrosis. No solid mass. No complex renal cystic lesion which requires follow up. Stomach and Bowel: Normal colonic caliber, without significant wall thickening. No evidence of acute appendicitis or diverticulitis. No abscess collection. Peritoneum: No abnormal intraperitoneal fluid. No free air. Ventral Wall: No significant ventral hernia. Abdominal Nodes: No retroperitoneal or mesenteric adenopathy by size criteria. Vessels: Aorta and inferior vena cava are normal in size. PELVIS: Pelvic Organs: Unremarkable. Bladder: There is suggestion of mild diffuse bladder wall thickening which could be due to under distension. Low-grade cystitis cannot be excluded. No discrete bladder wall mass or calcified bladder stones. Pelvic Nodes: No enlarged lymph nodes. Miscellaneous: No inguinal hernias are seen. Bones: No aggressive osseous abnormality. IMPRESSION: 1. No bowel obstruction or abnormal bowel wall thickening. No abscess collection. No evidence of acute appendicitis or diverticulitis. No free fluid or free air. 2. Questionable bladder wall thickening which may be due to under distension. Infectious or inflammatory cystitis cannot be entirely excluded. Clinical correlation is recommended. No significant discrepancies from preliminary reading. Dictated by: Nile West M.D. on 04/19/2024 at 8:57 Approved by: Nile West M.D. on 04/19/2024 at 9:04
[2024-04-19 03:30] VITALS: BP 127/80; PULSE 77; O2SAT 98
[2024-04-19] MEDS: ONDANSETRON 4 MG/2 ML INJ IV (03:32)
[2024-04-19 03:36] LABS: Alanine Aminotransferase 78 IU/L (<50); Albumin 4.3 g/dL (3.5-5.0); Albumin Globulin Ratio 1.3 (1.0-2.8); Alkaline Phosphatase 106 U/L (38-126); Aspartate Aminotransferase 49 IU/L (17-59); BUN Creatinine Ratio 28.2 (6-22); Bilirubin Total 0.4 mg/dL (0.2-1.3); Blood Urea Nitrogen 22 mg/dL (9-20); Calcium 9.5 mg/dL (8.4-10.2); Carbon Dioxide 23 mmol/L (22-32); Chloride 104 mmol/L (98-107); Estimated Glomerular Filt Rate > 60 mL/min (>60); Globulin 3.2 g/dL (1.7-4.1); Glucose 107 mg/dL (70-100); HEMOLYSIS < 15 (0-50); Potassium 4.3 mmol/L (3.4-5.1); Sodium 135 mmol/L (137-145); Total Protein 7.5 g/dL (6.3-8.2)
[2024-04-19 03:39] LABS: Bacteria Urine None Seen; Culture Indicated Urine Cult Not Indicated; RBC Urine None Seen (0-5/HPF); Squamous Epithelial Cell Urine None Seen (0-5/HPF); Urine Volume 10mL (spun); WBC Urine None Seen (0-5/HPF)
[2024-04-19 04:00] VITALS: PULSE 73; TEMP 36.6; O2SAT 98
== END 2024-04-19 04:27 | disposition home or self-care (01) ==
PROVIDERS: Emergency Provider Emergency Medicine
DX: R10.30 Lower abdominal pain, unspecified (principal); R11.0 Nausea
CPT/HCPCS: 36415; 74177; 80053; 81001; 85025; 96374; 99284; J2405; Q9967

== ENCOUNTER 2025-04-06 19:04 | Emergency (ER) | payer OTHER, SELFPAY ==
[2025-04-06 19:24] VITALS: PULSE 95; O2SAT 98
[2025-04-06 19:25] VITALS: BP 132/74; PULSE 78; PULSE 84; RESP 16; TEMP 37; O2SAT 97; O2SAT 98; BMI 28.6
[2025-04-06 19:30] VITALS: BP 124/70; PULSE 69; O2SAT 98
--- NOTE | 2025-04-06 19:30 | DI.RAD.S_ITS ---
PROCEDURE: XR SHOULDER RT MIN 2V INDICATIONS: R shoulder pain TECHNIQUE: 3 views of the shoulder were acquired. COMPARISON: [facility], CR, XR CHEST 1V, 03/27/2024, 12:23. FINDINGS: Bones: No fractures or dislocations. No suspicious bony lesions. Visualized ribs appear intact. Soft tissues: No suspicious soft tissue calcifications. IMPRESSION: No significant plain film abnormality is seen. If it would be helpful for clinical management decision making, please consider a dedicated, scheduled shoulder MRI for further evaluation (assuming that there is no contraindication). Dictated by: Scott Bob M.D. on 04/06/2025 at 19:05 Approved by: Scott Bob M.D. on 04/06/2025 at 19:05
[2025-04-06 20:00] VITALS: BP 126/77; PULSE 76; O2SAT 97
[2025-04-06 20:30] VITALS: BP 136/78; PULSE 80; O2SAT 98
[2025-04-06 21:00] VITALS: BP 124/68; PULSE 68; O2SAT 99
--- NOTE | 2025-04-06 21:07 | ED.UPPEXIN ---
HPI - Extremity Injury (Upper) General Chief Complaint: Extremity Injury, Upper Stated Complaint: rt shoulder pain Time Seen by Provider: 04/06/25 21:07 Source: patient, RN notes reviewed and old records reviewed Mode of arrival: Ambulatory Limitations: no limitations History of Present Illness HPI narrative: 24-year-old male presents with a complaint of right shoulder pain. Patient had his hands behind his neck with his elbows up in the air with a another friend who was pulling back on his arms to crack his back. He states instead of pulling them upwards the individual pulled them straight back and he had pain in his right shoulder which has persisted. He indicates pain seems to be more in the AC joint. He describes it as fairly mild. It is worse with movement particularly flexion and abduction. Patient states he does not really feel like it is weaker but when he tries to lift or move something heavy or over his head it does make it increasingly painful. He denies numbness tingling or weakness otherwise. No rash or skin changes. Denies any other injuries. Denies any injuries to his shoulder in the past. Related Data Previous Rx's ?Medication ?Instructions ?Recorded albuterol sulfate 90 mcg/actuation 2 puff inhalation Q4-6H PRN 03/27/24 aerosol inhaler shortness of breath or wheezing #6.7 grams azithromycin 250 mg tablet See Rx Instructions PO .COMPLEX #6 03/27/24 tabs inhalational spacing device #1 ea 03/27/24 (Aerochamber MV spacer) prednisone 10 mg tablets in a dose See Rx Instructions PO .COMPLEX 03/27/24 pack #15 ea ondansetron 4 mg disintegrating 4 mg PO Q8H PRN nausea and 04/19/24 tablet vomiting #30 tabs Allergies Allergy/AdvReac Type Severity Reaction Status Date / Time No Known Drug Allergies Allergy Verified 04/06/25 19:25 Review of Systems Review of Systems ROS Unobtainable: All systems reviewed & are unremarkable except as noted in HPI and below Patient History Social History Smoking Status: Never smoker Smoking Status: Never smoker tobacco type: vaping alcohol intake frequency: a few times a month Alcohol type: beer Exam Narrative Exam Narrative: GENERAL: Alert and oriented x three, mild distress HEENT: Head normocephalic, atraumatic, EOMI, pupils reactive, face symmetric, moist mucous membranes NECK: Supple, full range of motion CARDIOVASCULAR: Regular rate and rhythm without murmurs, rubs or gallops. RESPIRATORY: Breath sounds equal bilaterally, no wheezes rales or rhonchi. ABDOMEN: Soft, nontender. Normoactive bowel sounds all 4 quadrants. No guarding or rebound, rigidity, no mass : No CVA tenderness EXTREMITIES: Normal range of motion, no clubbing or edema. Neurovascularly intact. No bony tenderness on exam, patient has no tenderness over the clavicle scapula, AC joint, nontender over the humerus, elbow forearm wrist and hand. 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 Has normal supination pronation, no tenderness over the biceps tendon. With arms out history extended at 45? patient does have some weakness with resistance to downward pressure. NEUROLOGICAL: Cranial nerves II through XII grossly intact. Moving all extremities SKIN: Warm, dry, no petechiae, no rashes or lesions. Initial Vital Signs Initial Vital Signs: Vital Signs Pulse Rate 95 H 04/06/25 19:24 Pulse Oximetry 98 04/06/25 19:24 Course Orders Ordered: ED Orders 04/06/25 19:30 XR shoulder RT 2+ views Stat Vital Signs Vital signs: Vital Signs - 8 hr 04/06/25 19:24 04/06/25 19:25 04/06/25 19:25 Temperature 98.6 F Pulse Rate 95 H 84 78 Respiratory Rate 16 Blood Pressure 132/74 Pulse Oximetry 98 97 98 Oxygen Delivery Method Room Air 04/06/25 19:25 04/06/25 19:30 04/06/25 19:30 Temperature Pulse Rate 69 Respiratory Rate Blood Pressure 132/74 124/70 Pulse Oximetry 98 Oxygen Delivery Method 04/06/25 20:00 04/06/25 20:00 04/06/25 20:30 Temperature Pulse Rate 76 Respiratory Rate Blood Pressure 126/77 136/78 Pulse Oximetry 97 Oxygen Delivery Method 04/06/25 20:30 Temperature Pulse Rate 80 Respiratory Rate Blood Pressure Pulse Oximetry 98 Oxygen Delivery Method MDM - Extremity Injury (Upper) MDM Narrative Medical decision making narrative: Right shoulder x-ray no significant plain film abnormality seen. No fracture or dislocation. No suspicious bony lesion. Visualized ribs appear intact. No suspicious soft tissue calcifications. On exam suspect patient likely has a shoulder sprain from the mechanism of his injury but discussed differential. We will have patient with decreased activity and use of his right upper extremity for the next week if resolving and symptoms are normalized he can return to normal activity if persisting we will have him follow up with the their PCM in the [place] or was also given Orthopedic surgery contact. Patient defers sling. Discharge Plan Departure Patient Disposition: Home Clinical Impression: Shoulder sprain Instructions: DI for Shoulder Sprain Activity Restrictions/Additional Instructions: If your symptoms are persistent follow up with either primary care or orthopedic surgery. Contacts included below for orthopedic surgery. I would decrease your activity with your right upper extremity no heavy lifting for the next several days. You can take acetaminophen a 1000 mg every 6 hours for pain and/or you can take ibuprofen up to 600 mg every 6 hours as needed. OK to use ice pack on the affected body part. Use for 15-20 minutes each time, for 5-6x per day. If you develop worsening pain, numbness, tingling, discoloration of the affected body part, either see your doctor for an urgent re-assessment, or return to the Emergency Department. Return to the Emergency Department for any new or worsening symptoms. Prescriptions: No Action prednisone 10 mg tablets,dose pack See Rx Instructions .ROUTE .COMPLEX Qty: 15 0RF Rx Instructions: 5 tabs p.o. x1 day, then 4 tablets p.o. x1 day, then 3 tabs p.o. x1 day, then 2 tabs p.o. x1 day, then 1 tab p.o. x1 day azithromycin 250 mg tablet See Rx Instructions .ROUTE .COMPLEX Qty: 6 0RF Rx Instructions: For 250 mg dose pack: take 500 mg today (day 1), then 250 mg for 4 days (days 2-5) albuterol sulfate 90 mcg/actuation HFA aerosol inhaler 2 puff inhalation Q4-6H PRN (Reason: shortness of breath or wheezing) Qty: 6.7 0RF (DME) Aerochamber MV Spacer See Rx Instructions .Route Qty: 1 0RF Rx Instructions: As directed ondansetron 4 mg tablet,disintegrating 4 mg PO Q8H PRN (Reason: nausea and vomiting) Qty: 30 0RF Referrals: Jeramy Ace MD [Physician, Orthopedic Surgery] Provider,Jennifer COSBY [Primary Care Provider, Family Practice] Stand Alone Forms: Patient Portal/API, Work Release Note
== END 2025-04-06 21:28 | disposition home or self-care (01) ==
PROVIDERS: Emergency Provider Emergency Medicine
DX: S43.401A Unspecified sprain of right shoulder joint, initial encounter (principal); X58.XXXA Exposure to other specified factors, initial encounter
CPT/HCPCS: 73030; 99281; 99283